=== PATIENT | female | born 1985 ===

== ENCOUNTER 2021-08-10 12:19 | Outpatient (CLI) | payer OTHER, SELFPAY ==
--- NOTE | 2021-08-10 | ECHO_ITS ---
Patient Info Name: Jaci Delgadillo Age: 35 years : 1985 Gender: Female Ht: 66 in Wt: 215 lbs BSA: 2.17 m2 HR: 79 bpm BP: 137 / 75 mmHg Heart Rhythm: Sinus Rhythm Technical Quality: Good Exam Date: 08/10/2021 2:04 PM Exam Location: [facility] Patient Status: Outpatient Admit Date: 08/10/2021 Staff Ordering Physician: Alyssa, So [employer] Supervisor: Nyasia Gibson RDCS Attending Provider: JohnSo Exam Type: CA echo doppler color flow Study Info Indications - PARKINSON Complete two-dimensional, color flow and Doppler transthoracic echocardiogram is performed. Summary 1. Complete two-dimensional, color flow and Doppler transthoracic echocardiogram is performed. 2. Normal examination. Left Ventricle Left ventricular chamber dimension is normal. Left ventricular systolic function is normal, estimated at 60-65%. The left ventricular diastolic function is normal. Right Ventricle Right ventricular chamber dimension is normal. Left Atria Left atrial chamber dimension is normal. Right Atria Right atrial chamber dimension is normal. Aortic Valve The aortic valve is normal. Pulmonic Valve The pulmonic valve is normal. Mitral Valve The mitral valve has normal leaflets. Tricuspid Valve The tricuspid valve leaflets are normal. Pericardium/Pleural The pericardium appears normal. Aorta The aortic root size at the sinus of Valsalva is normal. Left Ventricular Outflow Tract Name Value Normal LVOT 2D LVOT Diameter 2.0 cm LVOT Doppler LVOT Peak Gradient 5 mmHg LVOT Mean Gradient 4 mmHg LVOT VTI 25 cm LVOT VTI/AV VTI Ratio 0.9 LVOT Stroke Volume 76 ml LVOT CO 17.1 l/min LVOT CI 7.9 l/min/m2 Pulmonic Valve Name Value Normal PV Doppler PV Peak Gradient 4 mmHg Mitral Valve Name Value Normal MV Doppler MV Decel Winston 568 cm/s2 MV PHT 44 ms MV Area (PHT) 5.1 cm2 4.0-5.0 MV Diastolic Function MV E Peak Velocity 85 cm/s MV A Peak Velocity 81 cm/s MV E/A 1.1 MV Decel Time 150 ms MV Annular TDI
--- NOTE | 2021-08-10 15:23 | WPDSIXMINUTE ---
Six Minute Walk Procedure Procedure Performed Pulmonary Stress Test (6 min walk) Six Minute Walk This is a 6 minute walk test. The test was performed and interpreted in accordance with the 2014 ERS/ATS task force guidelines. Findings: The patient's resting room air oxygen saturation measured by pulse oximetry was 96% and her heart rate was 80 bpm. Patient ambulated for 460 meters and oxygen saturation remained 94 to 97%. Heart rate at the end of the study was 102 bpm. The patient did not qualify for supplemental oxygen at rest or with ambulation. There are no prior studies for comparison.
--- NOTE | 2021-08-10 15:24 | WPDPFTINT ---
PFT Procedure Performed PFT Procedure Performed Spirometry with Pre/Post Bronchodilator Plethysmography (Lung Vol) Diffusing Cap (DLCO) Flow Vol Loop PFT Interpretation This is a pulmonary function test with pre and post-bronchodilator spirometry, plethysmography and diffusing capacity. The test was performed and results interpreted in accordance with the 2019 and 2005 ATS/ERS Task Force guidelines respectively using the Global Lung Function Initiative-2012 reference equations. Patient demonstrated good effort and cooperation. Reproducibility criteria were met. The quality of the pre bronchodilator spirometry maneuver was Grade A and post bronchodilator spirometry maneuver was Grade A. Findings: Spirometry: The contour the inspiratory and expiratory flow tracing are normal. The pre bronchodilator dilator FVC is 3.82 L, 95% predicted. The pre bronchodilator FEV1 is 2.72 L, 82% predicted. The FEV1: FVC ratio 71%. The post bronchodilator FVC is 3.81 L, representing no change. The post bronchodilator FEV1 is 2.96 L, representing a 9% increase. The post bronchodilator FEV1: FVC ratio is 78%. Plethysmography: The total lung capacity is 5.59 L, 104% predicted. The functional residual capacity is 2.25 L, 75% predicted. The residual volume is 1.77 L, 108% predicted. Diffusion capacity: The absolute diffusion capacity is 21.7, 87% predicted. The diffusing capacity corrected for alveolar volume is 4.49, 95% predicted. Impression: The spirometry is normal without evidence of an obstructive abnormality. There is no significant improvement after inhaling a single dose of albuterol. The lung volumes are normal. The diffusing capacity is normal. There are no prior studies for comparison
== END 2021-08-10 12:20 | disposition home or self-care (01) ==
PROVIDERS: Visit Provider Nurse Practitioner
DX: R06.09 Other forms of dyspnea (principal); Z86.16 Personal history of COVID-19
CPT/HCPCS: 93306; 94060; 94618; 94726; 94729